=== PATIENT | female | born 1995 | race Caucasian/White ===

== ENCOUNTER 2017-01-01 17:03 | Emergency (ER) | payer OTHER ==
[~2017-01-01] VITALS: Ht 182.9 cm; Wt 77.1 kg
[2017-01-01] MEDS ORDERED: SERT100T PO (17:19)
[2017-01-01 17:30] LABS: *BILIRUBIN,URIN NEGATIVE (NEGATIVE); *BLOOD, URINE NEGATIVE (NEGATIVE); *COLOR,URINE YELLOW (YELLOW); *KETONES,URINE NEGATIVE (NEGATIVE); *PROTEIN,URINE TRACE (NEGATIVE); LEUKOCYTE ESTERASE ,URINE NEGATIVE (NEGATIVE); NITRITE, URINE NEGATIVE (NEGATIVE); UGLUCOSE NEGATIVE (NEGATIVE)
[2017-01-01 17:33] LABS: *URINE HCG, QUAL NEGATIVE (NEGATIVE)
[2017-01-01 17:39] LABS: *CLARITY,URINE SLIGHTLY HAZY (CLEAR)
[2017-01-01 17:40] LABS: BACTERIA,URINE FEW /HPF (NONE SEEN); MUCUS,URINE MODERATE /LPF (0-FEW); SQUAMOUS EPITHELIAL CELL,UR MODERATE /HPF (NONE SEEN); WBC,URINE 0-3 /HPF (0-3)
--- NOTE | 2017-01-01 18:41 | NUR ---
Patient discharged to home in stable conditon. Written and verbal after care instructions given to patient. Patient verbalizes understanding of instructions.
== END 2017-01-01 18:42 | disposition home or self-care (01) ==
LOC: ER 17:06
DX: J39.8 Other specified diseases of upper respiratory tract (principal); N39.0 Urinary tract infection, site not specified; F32.9 Major depressive disorder, single episode, unspecified; Z88.0 Allergy status to penicillin; Z88.6 Allergy status to analgesic agent
CPT/HCPCS: 84703; A4663

== ENCOUNTER 2017-03-04 16:34 | Emergency (ER) | payer OTHER ==
[~2017-03-04] VITALS: Ht 182.9 cm; Wt 77.1 kg
[~2017-03-04 16:34] MED LIST: SERT100T PO
[2017-03-04] MEDS ORDERED: ALPR1TAB2 PO (16:49)
[2017-03-04 16:58] LABS: *BILIRUBIN,URIN NEGATIVE (NEGATIVE); *BLOOD, URINE 3+ (NEGATIVE); *CLARITY,URINE CLOUDY (CLEAR); *COLOR,URINE YELLOW (YELLOW); *KETONES,URINE NEGATIVE (NEGATIVE); *PROTEIN,URINE 3+ (NEGATIVE); *UROBILINOGEN,URINE 0.2 E.U./dl (NORMAL); LEUKOCYTE ESTERASE ,URINE 3+ (NEGATIVE); NITRITE, URINE NEGATIVE (NEGATIVE); UGLUCOSE NEGATIVE (NEGATIVE)
[2017-03-04] MEDS ORDERED: HYDROCODONE/APAP 5-325MG TABLET PO ONE (17:00)
[2017-03-04] MEDS ORDERED: HYDROCODONE/APAP 5-325MG TABLET ONE (17:03)
[2017-03-04 17:08] LABS: BACTERIA,URINE FEW /HPF (NONE SEEN); RBC,URINE 20-50 /HPF (0-3); SQUAMOUS EPITHELIAL CELL,UR MODERATE /HPF (NONE SEEN); WBC,URINE 20-50 /HPF (0-3)
[2017-03-04 17:25] LABS: *URINE HCG, QUAL NEGATIVE (NEGATIVE)
--- NOTE | 2017-03-04 18:03 | NUR ---
Patient discharged to home in stable conditon. Written and verbal after care instructions given. Patient verbalizes understanding of instructions.pt walks i nsteady gait. pt not driving. says mother is taking the pt home
== END 2017-03-04 18:05 | disposition home or self-care (01) ==
LOC: ER 17:11
DX: N39.0 Urinary tract infection, site not specified (principal); F32.9 Major depressive disorder, single episode, unspecified; F41.9 Anxiety disorder, unspecified; Z88.0 Allergy status to penicillin; Z88.6 Allergy status to analgesic agent
CPT/HCPCS: 84703; A4663

== ENCOUNTER 2017-06-13 19:39 | Emergency (ER) | payer OTHER ==
[~2017-06-13] VITALS: Ht 182.9 cm; Wt 81.6 kg
[~2017-06-13 19:39] MED LIST changes: +ALPR1TAB2 PO
[2017-06-13 20:15] LABS: *BILIRUBIN,URIN NEGATIVE (NEGATIVE); *BLOOD, URINE 2+ (NEGATIVE); *CLARITY,URINE CLOUDY (CLEAR); *COLOR,URINE YELLOW (YELLOW); *KETONES,URINE NEGATIVE (NEGATIVE); *PROTEIN,URINE 2+ (NEGATIVE); *UROBILINOGEN,URINE 0.2 E.U./dl (NORMAL); LEUKOCYTE ESTERASE ,URINE 2+ (NEGATIVE); NITRITE, URINE NEGATIVE (NEGATIVE); PH,URINE 5.5 (5.0-8.0); UGLUCOSE NEGATIVE (NEGATIVE)
[2017-06-13 20:16] LABS: *URINE HCG, QUAL NEGATIVE (NEGATIVE)
[2017-06-13 20:23] LABS: BACTERIA,URINE MANY /HPF (NONE SEEN); SQUAMOUS EPITHELIAL CELL,UR MODERATE /HPF (NONE SEEN); WBC,URINE 80-100 /HPF (0-3)
[2017-06-13 20:41] LABS: BASOPHILS % (AUTO) 0.2 % (0.0-2.0); EOSINOPHILS # (AUTO) 0.2 K/uL (0.0-0.7); EOSINOPHILS % (AUTO) 1.3 % (0.0-7.0); HEMATOCRIT 40.3 % (37-47); HEMOGLOBIN 13.4 G/DL (12.0-16.0); LYMPHOCYTES # (AUTO) 2.2 K/UL (0.8-4.8); LYMPHOCYTES % (AUTO) 16.6 % (20.5-74.5); MEAN CORPUSCULAR HEMOGLOBIN 28.4 UUG (27.0-31.0); MEAN CORPUSCULAR HGB CONC 33 g/dL (32.0-37.0); MEAN CORPUSCULAR VOLUME 85.2 FL (81.0-99.0); MONOCYTES # (AUTO) 0.7 K/UL (0.1-1.30); MONOCYTES % (AUTO) 5.4 % (0-11); NEUTROPHILS # (AUTO) 9.9 K/UL (1.8-8.9); NEUTROPHILS % (AUTO) 76.5 % (31.5-64.5); PLATELET COUNT (AUTO) 475 K/UL (150-450); RED BLOOD CELL COUNT(AUTO) 4.73 MIL/UL (4.2-5.4)
[2017-06-13 20:47] LABS: BILIRUBIN,TOTAL 0.2 mg/dL (0.2-1.0); POTASSIUM 3.5 mmol/L (3.5-5.1); TOTAL PROTEIN, SERUM 7.9 g/dL (6.4-8.2)
--- NOTE | 2017-06-13 21:40 | NUR ---
IV removed. Catheter intact and site benign. Pressure and 4x4 gauze applied to site. No bleeding noted.
--- NOTE | 2017-06-13 21:50 | NUR ---
Patient discharged to home in stable conditon with mother taking patient home. Written and verbal after care instructions given. Patient verbalizes understanding of instructions.
[2017-06-13 22:19] VITALS: BP 128/77
[2017-06-14] MEDS ORDERED: PREDNISONE (11:13)
[2017-06-14] MEDS ORDERED: ERYTHROMYCIN (11:13)
[2017-06-14] MEDS ORDERED: CIPRO (11:13)
[2017-06-14] MEDS ORDERED: IBUPROFEN (11:13)
[2017-06-14] MEDS ORDERED: AZIT250T6 PO (13:04)
[2017-06-14] MEDS ORDERED: IBUP-1955 PO (13:04)
[2017-06-14] MEDS ORDERED: PRED50TA PO (13:04)
[2017-06-14] MEDS ORDERED: CIPR-262 PO (13:04)
== END 2017-06-13 22:19 | disposition home or self-care (01) ==
LOC: ER 19:40
DX: N12 Tubulo-interstitial nephritis, not specified as acute or chronic (principal); H65.93 Unspecified nonsuppurative otitis media, bilateral; Z88.0 Allergy status to penicillin; N13.70 Vesicoureteral-reflux, unspecified; Z87.440 Personal history of urinary (tract) infections
CPT/HCPCS: 36415; 83690; 84703; 85025; 87077; 87086; A4663; J7030

== ENCOUNTER 2017-06-14 11:06 | Inpatient (IN) | payer OTHER ==
[~2017-06-14] VITALS: Ht 182.9 cm; Wt 89.4 kg
--- NOTE | 2017-06-14 11:10 | NUR ---
Pt was seen in ER here yesterday for Pylonephritis, hx of bladder reflux and infections. Pt c/o 06/18 bilateral back and flank pain, Advil ineffective. Pt denies CP, SOB, dizziness, n/v, no other complaints, minor distress noted.
[2017-06-14] MEDS ORDERED: CIPRO (11:13)
[2017-06-14] MEDS ORDERED: IBUPROFEN (11:13)
[2017-06-14] MEDS ORDERED: PREDNISONE (11:13)
[2017-06-14] MEDS ORDERED: ERYTHROMYCIN (11:13)
[2017-06-14 11:53] LABS: BASOPHILS % (AUTO) 0.2 % (0.0-2.0); EOSINOPHILS % (AUTO) 0.1 % (0.0-7.0); HEMATOCRIT 40.4 % (31.2-41.9); HEMOGLOBIN 13.9 g/dL (10.9-14.3); LYMPHOCYTES # (AUTO) 0.6 K/uL (20.0-40.0); LYMPHOCYTES % (AUTO) 4.8 % (20.5-74.5); MEAN CORPUSCULAR HEMOGLOBIN 29.5 uug (24.7-32.8); MEAN CORPUSCULAR HGB CONC 35 g/dL (32.3-35.6); MEAN CORPUSCULAR VOLUME 85.7 fL (75.5-95.3); MONOCYTES # (AUTO) 0.2 K/uL (2.0-10.0); MONOCYTES % (AUTO) 1.3 % (0-11); NEUTROPHILS # (AUTO) 12.5 K/uL (1.8-8.9); NEUTROPHILS % (AUTO) 93.6 % (31.5-64.5); PLATELET COUNT (AUTO) 383 K/uL (179-408); RED BLOOD CELL COUNT(AUTO) 4.71 MIL/uL (3.63-4.92); WHITE BLOOD COUNT (AUTO) 13.4 K/uL (3.8-11.8)
[2017-06-14 12:23] LABS: CARBON DIOXIDE 27 mmol/L (21-32); CHLORIDE 107 mmol/L (98-107); CREATININE 0.8 mg/dL (0.6-1.3); GLUCOSE 88 mg/dL (74-106); POTASSIUM 4.2 mmol/L (3.5-5.1); UREA NITROGEN, BLOOD 14 mg/dL (7-18)
[2017-06-14 12:29] LABS: ALANINE AMINOTRANSFERASE 13 U/L (14-59); ALKALINE PHOSPHATASE 105 U/L (50-136); ASPARTATE AMINOTRANSFERASE 10 U/L (15-37); BILIRUBIN,DIRECT < 0.1 mg/dL (0.0-0.2); BILIRUBIN,TOTAL 0.2 mg/dL (0.2-1.0); LIPASE 255 U/L (73-393); TOTAL PROTEIN, SERUM 7.1 g/dL (6.4-8.2)
[2017-06-14] MEDS ORDERED: IBUP-1955 PO (13:04)
[2017-06-14] MEDS ORDERED: AZIT250T6 PO (13:04)
[2017-06-14] MEDS ORDERED: PRED50TA PO (13:04)
[2017-06-14] MEDS ORDERED: CIPR-262 PO (13:04)
--- NOTE | 2017-06-14 13:05 | NUR ---
Pt to CT, NAD noted.
[2017-06-14 13:07] LABS: *BILIRUBIN,URIN NEGATIVE (NEGATIVE); *BLOOD, URINE NEGATIVE (NEGATIVE); *CLARITY,URINE CLEAR (CLEAR); *COLOR,URINE YELLOW (YELLOW); *KETONES,URINE TRACE (NEGATIVE); *PROTEIN,URINE NEGATIVE (NEGATIVE); *URINE HCG, QUAL NEGATIVE (NEGATIVE); *UROBILINOGEN,URINE 0.2 E.U./dl (NORMAL); LEUKOCYTE ESTERASE ,URINE NEGATIVE (NEGATIVE); NITRITE, URINE NEGATIVE (NEGATIVE); UGLUCOSE NEGATIVE (NEGATIVE)
[2017-06-14 13:20] LABS: BACTERIA,URINE FEW /HPF (NONE SEEN); SQUAMOUS EPITHELIAL CELL,UR MODERATE /HPF (NONE SEEN)
--- NOTE | 2017-06-14 13:31 | NUR ---
Pt back from CT, states her pain is improved.
--- NOTE | 2017-06-14 14:31 | NUR ---
Pt resting in [facility], states she is pain free at this time. Dr. Burnham spoke with Dr. Leary via telephone and pt to be admitted to m/s.
--- NOTE | 2017-06-14 14:45 | NUR ---
No m/s beds available at this time, pt will be held in ER until bed available.
--- NOTE | 2017-06-14 17:24 | NUR ---
Pt resting in bed, pain free, no complaints, no distress noted. Pt appears slightly pale, VSS.
--- NOTE | 2017-06-14 19:33 | NUR ---
Pt is alert, responsive as report is received from the off going nurse that she came in c/o Bilat Flank pain with history off Pyelonephritis. Her care continue with IVF and antibiotic therapy as she is been admitted while monitor and awaits bed for admission.
--- NOTE | 2017-06-14 20:25 | NUR ---
Pt remain alert, responsive as report is given to the 2nd floor RN as she is going to room 228. Her care continue with pain medications noted effective at this hour.
--- NOTE | 2017-06-14 20:45 | NUR ---
ADMITTED PATIENT IN THE MED SURG FLOOR UNDER THE CARE OF DR. YEUNG, BELONGING LIST DONE.
[2017-06-14 22:00] VITALS: BP 124/63
--- NOTE | 2017-06-14 22:02 | NUR ---
ROCEPHIN 1GM NOT GIVEN, TOO CLOSE FROM PREVIOUS ADMINISTRATION, ROCEPHIN 1GM GIVEN AT E.R.
[2017-06-15 04:00] VITALS: BP 119/50
--- NOTE | 2017-06-15 06:56 | NUR ---
PATIENT SLEPT MOST OF THE NIGHT NO SOB NO CHEST PAIN NOTED, NO OTHER COMPLAIN OF PAIN AT THIS TIME. PATIENT REMAINS NPO ALL NIGHT, WILL ENDORSED TO CLARIFY IF PATIENT CAN EAT MEALS.
[2017-06-15 07:43] LABS: BASOPHILS % (AUTO) 0.3 % (0.0-2.0); EOSINOPHILS # (AUTO) 0.1 K/uL (0.0-0.7); EOSINOPHILS % (AUTO) 0.5 % (0.0-7.0); HEMATOCRIT 39.4 % (37-47); HEMOGLOBIN 13.5 G/DL (12.0-16.0); MEAN CORPUSCULAR HEMOGLOBIN 29.1 UUG (27.0-31.0); MEAN CORPUSCULAR HGB CONC 34 g/dL (32.0-37.0); MEAN CORPUSCULAR VOLUME 85.1 FL (81.0-99.0); MONOCYTES # (AUTO) 0.8 K/UL (0.1-1.30); MONOCYTES % (AUTO) 6.3 % (0-11); NEUTROPHILS # (AUTO) 9.1 K/UL (1.8-8.9); NEUTROPHILS % (AUTO) 75.9 % (31.5-64.5); PLATELET COUNT (AUTO) 418 K/UL (150-450); RED BLOOD CELL COUNT(AUTO) 4.63 MIL/UL (4.2-5.4)
[2017-06-15 07:54] LABS: BILIRUBIN,TOTAL 0.2 mg/dL (0.2-1.0); CREATININE 0.9 mg/dL (0.6-1.3); MAGNESIUM 1.9 mg/dL (1.8-2.4); PHOSPHOROUS 3.8 mg/dL (2.5-4.9); POTASSIUM 3.5 mmol/L (3.5-5.1); TOTAL PROTEIN, SERUM 7.2 g/dL (6.4-8.2)
--- NOTE | 2017-06-15 08:00 | NUR ---
Awake, alert, oriented x 4, comfortable at this time. Mother at bedside
--- NOTE | 2017-06-15 10:15 | NUR ---
Complaining of of left flank pain. Toradol IV given, with relief.
[2017-06-15 11:13] VITALS: BP 113/65
--- NOTE | 2017-06-15 12:00 | NUR ---
Dr. Leary seen and examined patient, discussed condition and plan of care with mother
[2017-06-15 15:17] VITALS: BP 110/54
--- NOTE | 2017-06-15 15:30 | NUR ---
IVF of NS started as ordered
--- NOTE | 2017-06-15 18:50 | NUR ---
IVF infusing, due Rocephin infusing. Pain scale of 2/10, bearable at this time, offered pain medication but refused and will call if not tolerable.
--- NOTE | 2017-06-15 19:30 | NUR ---
Pt in room alert, awake, with mother at bedside. States pain 4/10 but able to tolerate at this time. No acute distress or discomfort. Continue to monitor. Call light placed within reach.
[2017-06-15 20:00] VITALS: BP 129/71
--- NOTE | 2017-06-16 00:44 | NUR ---
Pt alert, awake, in room. Pain medication Dilaudid effective. NS running at 80cc/hr. Call light placed within reach.
--- NOTE | 2017-06-16 05:08 | NUR ---
Pt asleep in room. No pain at this time. BP110/77. Continue to monitor.
[2017-06-16 06:58] VITALS: BP 110/77
--- NOTE | 2017-06-16 07:30 | NUR ---
Received report from wet plant operator nurse, patient in bed asleep, no evidence of distress noted. Bed in low position, side rails up x2.
[2017-06-16 08:06] LABS: BASOPHILS % (AUTO) 0.5 % (0.0-2.0); EOSINOPHILS # (AUTO) 0.3 K/uL (0.0-0.7); EOSINOPHILS % (AUTO) 4.3 % (0.0-7.0); HEMOGLOBIN 12.8 G/DL (12.0-16.0); LYMPHOCYTES # (AUTO) 2.4 K/UL (0.8-4.8); LYMPHOCYTES % (AUTO) 29.8 % (20.5-74.5); MEAN CORPUSCULAR HEMOGLOBIN 29.4 UUG (27.0-31.0); MEAN CORPUSCULAR HGB CONC 35 g/dL (32.0-37.0); MONOCYTES # (AUTO) 0.6 K/UL (0.1-1.30); MONOCYTES % (AUTO) 7.1 % (0-11); NEUTROPHILS # (AUTO) 4.7 K/UL (1.8-8.9); NEUTROPHILS % (AUTO) 58.3 % (31.5-64.5); PLATELET COUNT (AUTO) 404 K/UL (150-450); RED BLOOD CELL COUNT(AUTO) 4.35 MIL/UL (4.2-5.4)
[2017-06-16 08:55] LABS: CREATININE 0.9 mg/dL (0.6-1.3); MAGNESIUM 1.7 mg/dL (1.8-2.4); POTASSIUM 3.9 mmol/L (3.5-5.1)
[2017-06-16 11:53] VITALS: BP 125/70
[2017-06-16 15:22] VITALS: BP 123/61
--- NOTE | 2017-06-16 19:35 | NUR ---
PATIENT IN BED, AWAKE, NO REPORTS OF PAIN. PATIENT HAD 2BM'S TODAY AND IS IN NO DISTRESS. BED IS IN LOW POSITION, SIDE RAILS UP X2.
[2017-06-16 20:00] VITALS: BP 125/66
--- NOTE | 2017-06-16 23:11 | NUR ---
patient is comfortable sitting in bed with family at bedside. complaint of left abdominal pain 6/10 given prn dilaudid. maintained on ivf as ordered. otherwise vss. call light within reach.
[2017-06-17 05:23] VITALS: BP 124/65
--- NOTE | 2017-06-17 07:35 | NUR ---
Received report from shift leader nurse, patient in bed asleep, no evidence of distress noted. Bed in low position, side rails up x2. call light with in reach
[2017-06-17 11:24] VITALS: BP 127/77
[2017-06-17 15:49] VITALS: BP 114/65
[2017-06-17 20:29] VITALS: BP 136/64
--- NOTE | 2017-06-18 00:32 | NUR ---
Pt in room asleep at this time. No c/o of pain. Call light within reach.
[2017-06-18 06:21] VITALS: BP 112/60
--- NOTE | 2017-06-18 07:30 | NUR ---
RECEIVED REPORT FROM MEDICATION CARE MANAGER NURSE, PATIENT IN BED ASLEEP, NO EVIDENCE OF DISTRESS NOTED, BED IN LOW POSITION, SIDE RAILS UP X2, CALL LIGHT WITHIN REACH.
[2017-06-18 11:32] VITALS: BP 136/86
[2017-06-18 15:30] VITALS: BP 106/58
--- NOTE | 2017-06-18 19:30 | NUR ---
PT RECEIVED IN BED, AWAKE. MOTHER AT BEDSIDE. A/O X4. ABLE TO MAKE NEEDS KNOW. VS STABLE. IN NO ACUTE DISTRESS. NO C/O PAIN. IV INTACT/PATENT. PT WAITING FOR DISCHARGE. SAFETY MEASURE IMPLEMENTED. CALL LIGHT WITHIN REACH.
--- NOTE | 2017-06-18 19:30 | NUR ---
GAVE REPORT TO SLASHER TENDER HELPER STAFF. PATIENT IS AWAITING TO BE DISCHARGED. DISCHARGE ORDERS WILL BE COMPLETED BY DR GAGE, PRESCRIPTION IN CHART FOR PATIENT.
[2017-06-18 20:00] VITALS: BP 115/70
--- NOTE | 2017-06-18 20:35 | NUR ---
PT IN STABLE CONDITION. READY FOR DISCHARGE. DISCHARGE FORMS PROVIDED AND SIGNED. DISCHARGE EDUCATION PROVIDED. NEW MEDICATION PRESCRIPTIONS PROVIDED. BELONGINGS LIST COMPLETED AND SIGNED. IV D/C. WHEELCHAIR TRANSPORTATION PROVIDED.
== END 2017-06-18 20:39 | disposition home or self-care (01) | DRG 463 ==
LOC: ER 11:06 → MED 20:29
PROVIDERS: ADMIT Internal Medicine; ATTEND Internal Medicine
DX: N12 Tubulo-interstitial nephritis, not specified as acute or chronic (principal); N13.70 Vesicoureteral-reflux, unspecified; B96.20 Unspecified Escherichia coli [E. coli] as the cause of diseases classified elsewhere; N26.1 Atrophy of kidney (terminal); E66.9 Obesity, unspecified; Z87.440 Personal history of urinary (tract) infections; K56.41 Fecal impaction; H65.93 Unspecified nonsuppurative otitis media, bilateral
CPT/HCPCS: 36415; 83690; 83735; 84100; 84703; 85025; A4663; J0696; J1170; J1885; J1956; J2405; J7030; J7060

== ENCOUNTER 2017-07-01 15:36 | Emergency (ER) | payer OTHER ==
[~2017-07-01] VITALS: Ht 182.9 cm; Wt 79.4 kg
[~2017-07-01 15:36] MED LIST changes: -ALPR1TAB2 PO
[2017-07-01] MEDS ORDERED: LEVOFLOXACIN 500 MG TABLET PO (15:55)
[2017-07-01] MEDS ORDERED: HYDROCODON-ACETAMINOPHN 10-325 PO (15:55)
[2017-07-01] MEDS ORDERED: XANAX 1 MG PO (15:55)
[2017-07-01] MEDS ORDERED: IV NORMAL SALINE 1000 ML BAG IV ONE (16:30)
[2017-07-01] MEDS ORDERED: PANTOPRAZOLE SODIUM 40 MG VIAL IV ONE (16:30)
[2017-07-01] MEDS ORDERED: MORPHINE SULFATE 2 MG/1 ML DISP.SYRIN IV ONE (16:30)
[2017-07-01] MEDS ORDERED: ONDANSETRON 4 MG/2 ML VIAL IV ONE (16:30)
[2017-07-01 16:58] LABS: *BILIRUBIN,URIN NEGATIVE (NEGATIVE); *BLOOD, URINE NEGATIVE (NEGATIVE); *CLARITY,URINE CLEAR (CLEAR); *COLOR,URINE YELLOW (YELLOW); *KETONES,URINE TRACE (NEGATIVE); *PROTEIN,URINE 1+ (NEGATIVE); *UROBILINOGEN,URINE 0.2 E.U./dl (NORMAL); LEUKOCYTE ESTERASE ,URINE NEGATIVE (NEGATIVE); NITRITE, URINE NEGATIVE (NEGATIVE); UGLUCOSE NEGATIVE (NEGATIVE)
[2017-07-01 17:04] LABS: CREATININE 0.9 mg/dL (0.6-1.3); POTASSIUM 4.2 mmol/L (3.5-5.1); RBC,URINE 0-3 /HPF (0-3)
[2017-07-01 17:05] LABS: BACTERIA,URINE FEW /HPF (NONE SEEN); SQUAMOUS EPITHELIAL CELL,UR MODERATE /HPF (NONE SEEN); WBC,URINE 0-3 /HPF (0-3)
[2017-07-01 17:10] LABS: BILIRUBIN,DIRECT 0.1 mg/dL (0.0-0.2); BILIRUBIN,TOTAL 0.5 mg/dL (0.2-1.0)
[2017-07-01] MEDS ORDERED: PANTOPRAZOLE SODIUM 40 MG VIAL ONE (17:14)
[2017-07-01] MEDS ORDERED: ONDANSETRON 4 MG/2 ML VIAL ONE (17:14)
[2017-07-01 17:15] LABS: BASOPHILS % (AUTO) 0.1 % (0.0-2.0); EOSINOPHILS # (AUTO) 0.1 K/uL (0.0-0.7); EOSINOPHILS % (AUTO) 0.8 % (0.0-7.0); HEMATOCRIT 43.4 % (37-47); HEMOGLOBIN 14.1 G/DL (12.0-16.0); LYMPHOCYTES # (AUTO) 0.6 K/UL (0.8-4.8); LYMPHOCYTES % (AUTO) 5.3 % (20.5-74.5); MEAN CORPUSCULAR HEMOGLOBIN 27.6 UUG (27.0-31.0); MEAN CORPUSCULAR HGB CONC 33 g/dL (32.0-37.0); MEAN CORPUSCULAR VOLUME 85.2 FL (81.0-99.0); MONOCYTES # (AUTO) 0.4 K/UL (0.1-1.30); MONOCYTES % (AUTO) 3.4 % (0-11); NEUTROPHILS # (AUTO) 10.8 K/UL (1.8-8.9); NEUTROPHILS % (AUTO) 90.4 % (31.5-64.5); PLATELET COUNT (AUTO) 431 K/UL (150-450); WHITE BLOOD COUNT (AUTO) 11.9 K/UL (4.0-11.2)
[2017-07-01] MEDS ORDERED: MORPHINE SULFATE 2 MG/1 ML DISP.SYRIN ONE (17:15)
--- NOTE | 2017-07-01 18:40 | NUR ---
Patient discharged to home in stable conditon. Written and verbal after care instructions given. Patient verbalizes understanding of instructions.pt wakls in steady gait,pt with family members, pt not driving
--- NOTE | 2017-07-01 18:41 | NUR ---
pt says feels better, pt deneis any pain, nausea or dizziness at this time.
[2017-07-01 18:42] VITALS: BP 119/81
== END 2017-07-01 18:43 | disposition home or self-care (01) ==
LOC: ER 15:38
DX: R10.9 Unspecified abdominal pain (principal); Z88.0 Allergy status to penicillin
CPT/HCPCS: 36415; 76770; 80048; 80076; 81001; 83605; 83690; 84703; 85025; 87040 ×2; 96361; 96374; 96375; 99285; A4663; C9113; J2270; J2405; J7030

== ENCOUNTER 2018-10-25 17:54 | Emergency (ER) | payer MEDICAID, OTHER ==
[~2018-10-25] VITALS: Ht 182.9 cm; Wt 87.5 kg
[~2018-10-25 17:54] MED LIST changes: +HYDROCODON-ACETAMINOPHN 10-325 PO; +LEVOFLOXACIN 500 MG TABLET PO; +XANAX 1 MG PO
--- NOTE | 2018-10-25 18:15 | NUR ---
URINE SENT TO LAB....
[2018-10-25 18:17] LABS: *BILIRUBIN,URIN NEGATIVE (NEGATIVE); *BLOOD, URINE 2+ (NEGATIVE); *COLOR,URINE YELLOW (YELLOW); *KETONES,URINE NEGATIVE (NEGATIVE); *UROBILINOGEN,URINE 0.2 E.U./dl (NORMAL); LEUKOCYTE ESTERASE ,URINE TRACE (NEGATIVE); NITRITE, URINE NEGATIVE (NEGATIVE); UGLUCOSE NEGATIVE (NEGATIVE)
[2018-10-25 18:22] LABS: *CLARITY,URINE SLIGHTLY CLOUDY (CLEAR)
[2018-10-25 18:23] LABS: *URINE HCG, QUAL NEGATIVE (NEGATIVE)
[2018-10-25 18:27] LABS: BACTERIA,URINE FEW /HPF (NONE SEEN); SQUAMOUS EPITHELIAL CELL,UR FEW /HPF (NONE SEEN); WBC,URINE 20-50 /HPF (0-3)
[2018-10-25] MEDS ORDERED: LEVOFLOXACIN 500 MG TABLET ONE (18:44)
[2018-10-25] MEDS ORDERED: KETOROLAC TROMETHAMINE 30 MG INJ ONE (18:44)
--- NOTE | 2018-10-25 18:44 | NUR ---
Patient discharged to home in stable conditon. Written and verbal after care instructions given. Patient verbalizes understanding of instructions.
[2018-10-25] MEDS ORDERED: LEVOFLOXACIN 500 MG TABLET PO ONE (18:45)
[2018-10-25] MEDS ORDERED: KETOROLAC TROMETHAMINE 30 MG INJ IM ONE (18:45)
== END 2018-10-25 18:45 | disposition home or self-care (01) ==
LOC: ER 17:57
DX: N12 Tubulo-interstitial nephritis, not specified as acute or chronic (principal); Z88.0 Allergy status to penicillin; Z88.5 Allergy status to narcotic agent; Z79.2 Long term (current) use of antibiotics; Z79.899 Other long term (current) drug therapy
CPT/HCPCS: 81001; 84703; 87086; 96372; 99283; J1885; 87077; A4663

== ENCOUNTER 2020-08-26 13:11 | Emergency (ER) | payer MEDICAID ==
[~2020-08-26] VITALS: Ht 182.9 cm; Wt 81.6 kg
[2020-08-26] MEDS ORDERED: HYDROMORPHONE 1 MG/1 ML DISP.SYRIN IV ONE ×3 (13:45→18:00)
[2020-08-26] MEDS ORDERED: PANTOPRAZOLE SODIUM 40 MG VIAL IV ONE (13:45)
[2020-08-26] MEDS ORDERED: PANTOPRAZOLE SODIUM 40 MG VIAL ONE (13:45)
[2020-08-26] MEDS ORDERED: HYDROMORPHONE 1 MG/1 ML DISP.SYRIN ONE ×2 (13:45→15:53)
[2020-08-26] MEDS ORDERED: ONDANSETRON 4 MG/2 ML VIAL ONE ×3 (13:45→17:59)
[2020-08-26] MEDS ORDERED: IV NORMAL SALINE 1000 ML BAG IV ONE (13:45)
[2020-08-26] MEDS ORDERED: ONDANSETRON 4 MG/2 ML VIAL IV ONE ×3 (13:45→18:00)
[2020-08-26 14:16] LABS: BASOPHILS % (AUTO) 0.5 % (0.0-2.0); EOSINOPHILS # (AUTO) 0.3 K/uL (0.0-0.7); HEMATOCRIT 42.1 % (31.2-41.9); HEMOGLOBIN 14.1 g/dL (10.9-14.3); LYMPHOCYTES # (AUTO) 1.6 K/uL (20.0-40.0); LYMPHOCYTES % (AUTO) 18.7 % (20.5-51.5); MEAN CORPUSCULAR HEMOGLOBIN 30.2 uug (24.7-32.8); MEAN CORPUSCULAR HGB CONC 34 g/dL (32.3-35.6); MONOCYTES # (AUTO) 0.6 K/uL (2.0-10.0); MONOCYTES % (AUTO) 6.9 % (0.0-11.0); NEUTROPHILS # (AUTO) 6.2 K/uL (1.8-8.9); NEUTROPHILS % (AUTO) 69.9 % (38.5-71.5); PLATELET COUNT (AUTO) 386 K/uL (179-408); RED BLOOD CELL COUNT(AUTO) 4.68 MIL/uL (3.63-4.92); WHITE BLOOD COUNT (AUTO) 8.8 K/uL (3.8-11.8)
[2020-08-26 14:21] LABS: ALANINE AMINOTRANSFERASE 24 U/L (14-59); ALKALINE PHOSPHATASE 92 U/L (50-136); ASPARTATE AMINOTRANSFERASE 13 U/L (15-37); BILIRUBIN,DIRECT 0.1 mg/dL (0.0-0.2); BILIRUBIN,TOTAL 0.3 mg/dL (0.2-1.0); CARBON DIOXIDE 28 mmol/L (21-32); CHLORIDE 107 mmol/L (98-107); CREATININE 0.9 mg/dL (0.6-1.3); GLUCOSE 97 mg/dL (74-106); LIPASE 80 U/L (73-393); TOTAL PROTEIN, SERUM 7.3 g/dL (6.4-8.2); UREA NITROGEN, BLOOD 11 mg/dL (7-18)
[2020-08-26 15:11] LABS: *BILIRUBIN,URIN 1+ (NEGATIVE); *BLOOD, URINE 1+ (NEGATIVE); *CLARITY,URINE CLEAR (CLEAR); *COLOR,URINE YELLOW (YELLOW); *KETONES,URINE NEGATIVE (NEGATIVE); *UROBILINOGEN,URINE 0.2 E.U./dl (NORMAL); LEUKOCYTE ESTERASE ,URINE NEGATIVE (NEGATIVE); NITRITE, URINE NEGATIVE (NEGATIVE); UGLUCOSE NEGATIVE (NEGATIVE)
[2020-08-26] MEDS ORDERED: methylPREDNISolone SOD SUCC 125 MG/2 ML VIAL IV ONE (16:15)
[2020-08-26] MEDS ORDERED: methylPREDNISolone SOD SUCC 125 MG/2 ML VIAL ONE (16:16)
--- NOTE | 2020-08-26 16:19 | NUR ---
Patient ambulated to bathroom with brisk steady gait, pending assigned med-surgical bed & nurse@this time
--- NOTE | 2020-08-26 17:24 | NUR ---
Patient will be discharge to home instead of admitted to the hospital per Dr Burnham.
--- NOTE | 2020-08-26 17:48 | NUR ---
Patient is asking for COVID test, more pain medicines and pain prescription. Dr Burnham notified.
[2020-08-26] MEDS ORDERED: HYDROMORPHONE 2 MG/1 ML DISP.SYRIN ONE (17:59)
--- NOTE | 2020-08-26 18:15 | NUR ---
IV removed. Catheter intact and site benign. Pressure and 4x4 gauze applied to site. No bleeding noted. Patient discharged to home in stable condition with brisk steady gait. Written and verbal after care instructions given. Patient verbalizes understanding & compliance of instructions. Stressed follow up with her primary doctor & GI doctor or return to ER for worsening s/s.
[2020-08-26 19:49] LABS: BACTERIA,URINE FEW /HPF (NONE SEEN); RBC,URINE 0-3 /HPF (0-3); SQUAMOUS EPITHELIAL CELL,UR FEW /HPF (NONE SEEN); WBC,URINE NONE SEEN /HPF (0-3)
[2020-08-26 19:50] LABS: URINE AMORPHOUS URATE MODERATE /HPF
== END 2020-08-26 18:16 | disposition home or self-care (01) ==
LOC: ER 13:11
DX: K52.9 Noninfective gastroenteritis and colitis, unspecified (principal); F32.9 Major depressive disorder, single episode, unspecified; F41.0 Panic disorder [episodic paroxysmal anxiety]; N26.1 Atrophy of kidney (terminal); Z20.828 Contact with and (suspected) exposure to other viral communicable diseases
CPT/HCPCS: 36415; 71045; 74176; 80048; 80076; 81001; 83690; 84702; 85025; 87426; 96361; 96374; 96375; 96376; 99285; C9113; J1170 ×3; J2405 ×3; J2930; A4663; J7030

== ENCOUNTER 2021-05-28 12:55 | Emergency (ER) | payer MEDICAID ==
[~2021-05-28] VITALS: Ht 182.9 cm; Wt 83.9 kg
[2021-05-28 13:52] LABS: *BILIRUBIN,URIN NEGATIVE (NEGATIVE); *BLOOD, URINE NEGATIVE (NEGATIVE); *CLARITY,URINE CLEAR (CLEAR); *COLOR,URINE YELLOW (YELLOW); *KETONES,URINE NEGATIVE (NEGATIVE); *UROBILINOGEN,URINE 0.2 E.U./dl (NORMAL); LEUKOCYTE ESTERASE ,URINE NEGATIVE (NEGATIVE); NITRITE, URINE NEGATIVE (NEGATIVE); UGLUCOSE NEGATIVE (NEGATIVE)
[2021-05-28 14:13] LABS: *URINE HCG, QUAL NEGATIVE (NEGATIVE)
[2021-05-28 14:23] LABS: SQUAMOUS EPITHELIAL CELL,UR FEW /HPF (NONE SEEN)
[2021-05-28 14:24] LABS: BACTERIA,URINE NONE SEEN /HPF (NONE SEEN); MUCUS,URINE FEW /LPF (0-FEW); RBC,URINE NONE SEEN /HPF (0-3); WBC,URINE 0-3 /HPF (0-3)
[2021-05-28] MEDS ORDERED: AZITHROMYCIN 250 MG TABLET PO ONE (14:45)
[2021-05-28] MEDS ORDERED: CEFTRIAXONE 500 MG VIAL IM ONE (14:45)
[2021-05-28] MEDS ORDERED: CEFTRIAXONE 500 MG VIAL ONE (15:08)
[2021-05-28] MEDS ORDERED: LIDOCAINE HCL 1% 20 ML VIAL ONE (15:08)
[2021-05-28] MEDS ORDERED: AZITHROMYCIN 250 MG TABLET ONE (15:08)
[2021-05-28] MEDS ORDERED: D-ME473S63 PO (15:28)
--- NOTE | 2021-05-28 16:20 | NUR ---
Patient discharged to home in stable condition. Written and verbal after care instructions given. Patient verbalizes understanding of instructions. Stressed follow up or return to ER for worsening s/s.PT WALKS IN STEADY GAIT. NO SIGN OF DISTRESS.
[2021-05-28 16:30] VITALS: BP 141/55
[2021-06-01 23:10] LABS: *GC NAA Negative; *TRIC.VAG. NAA Negative
== END 2021-05-28 16:20 | disposition home or self-care (01) ==
LOC: ER 12:57
DX: N34.2 Other urethritis (principal); B34.9 Viral infection, unspecified; R05 Cough; Z20.822 Contact with and (suspected) exposure to COVID-19; Z88.5 Allergy status to narcotic agent; Z88.0 Allergy status to penicillin; N26.1 Atrophy of kidney (terminal); F32.9 Major depressive disorder, single episode, unspecified; F41.0 Panic disorder [episodic paroxysmal anxiety]; Z79.899 Other long term (current) drug therapy
CPT/HCPCS: 81001; 84703; 87426; 87491; 96372; 99283; J0696; J3490; U0003; A4663; Q0144

== ENCOUNTER 2022-04-15 17:15 | Emergency (ER) | payer MEDICAID ==
[~2022-04-15] VITALS: Ht 180.3 cm; Wt 90.7 kg
[~2022-04-15 17:15] MED LIST changes: +D-ME473S63 PO
[2022-04-15] MEDS ORDERED: ONDANSETRON 4 MG/2 ML VIAL IV ONE (18:15)
[2022-04-15] MEDS ORDERED: IV NORMAL SALINE 1000 ML BAG IV ONE (18:15)
[2022-04-15] MEDS ORDERED: ONDANSETRON 4 MG/2 ML VIAL ONE (18:16)
[2022-04-15 18:49] LABS: HEMATOCRIT 45.2 % (31.2-41.9); MEAN CORPUSCULAR VOLUME 90.9 fL (75.5-95.3); PLATELET COUNT (AUTO) 356 K/uL (179-408)
[2022-04-15 18:52] LABS: CARBON DIOXIDE 30 mmol/L (21-32); CHLORIDE 106 mmol/L (98-107); GLUCOSE 78 mg/dL (74-106); POTASSIUM 3.7 mmol/L (3.5-5.1); UREA NITROGEN, BLOOD 11 mg/dL (7-18)
[2022-04-15 18:57] LABS: ALANINE AMINOTRANSFERASE 27 U/L (14-59); ALKALINE PHOSPHATASE 107 U/L (50-136); ASPARTATE AMINOTRANSFERASE 16 U/L (15-37); BILIRUBIN,DIRECT 0.1 mg/dL (0.0-0.2); BILIRUBIN,TOTAL 0.4 mg/dL (0.2-1.0); LIPASE 86 U/L (73-393); TOTAL PROTEIN, SERUM 8.1 g/dL (6.4-8.2)
[2022-04-15] MEDS ORDERED: MORPHINE SULFATE 4 MG/1 ML DISP.SYRIN ONE (18:59)
[2022-04-15] MEDS ORDERED: MORPHINE SULFATE 4 MG/1 ML DISP.SYRIN IV ONE (19:00)
[2022-04-15 19:05] LABS: *BILIRUBIN,URIN NEGATIVE (NEGATIVE); *BLOOD, URINE NEGATIVE (NEGATIVE); *CLARITY,URINE CLEAR (CLEAR); *COLOR,URINE YELLOW (YELLOW); *KETONES,URINE NEGATIVE (NEGATIVE); *UROBILINOGEN,URINE 0.2 E.U./dl (NORMAL); LEUKOCYTE ESTERASE ,URINE NEGATIVE (NEGATIVE); NITRITE, URINE NEGATIVE (NEGATIVE); UGLUCOSE NEGATIVE (NEGATIVE)
--- NOTE | 2022-04-15 19:05 | NUR ---
Morphine given as ordered. Pain scale 9/10. Will endorse to the next shift.
[2022-04-15] MEDS ORDERED: HYDROMORPHONE 1 MG/1 ML DISP.SYRIN IV ONE ×2 (20:00→21:15)
[2022-04-15] MEDS ORDERED: IV NS 1000 ML 1,000 ML IV ONE (20:00)
[2022-04-15] MEDS ORDERED: HYDROMORPHONE 1 MG/1 ML DISP.SYRIN ONE ×2 (20:30→21:26)
[2022-04-15] MEDS ORDERED: NALO4SPR BNOSTRILS (21:02)
[2022-04-15] MEDS ORDERED: HYDR-3974 PO (21:02)
[2022-04-15] MEDS ORDERED: PRED20TA PO (21:02)
[2022-04-15] MEDS ORDERED: predniSONE 20 MG TABLET PO ONE (21:15)
[2022-04-15] MEDS ORDERED: predniSONE 20 MG TABLET ONE (21:26)
--- NOTE | 2022-04-15 21:40 | NUR ---
Patient discharged to home in stable condition. Written and verbal after care instructions given. Patient verbalizes understanding of instructions. Stressed follow up or return to ER for worsening s/s. Patient walked weith a steady gait. VS stable. No signs of acute distress. Instructed not to drive. Provided copy of labs. All belongings taken. IV site DC.
[2022-04-15 21:43] VITALS: BP 125/88
== END 2022-04-15 21:44 | disposition home or self-care (01) ==
LOC: ER 17:15
DX: K50.90 Crohn's disease, unspecified, without complications (principal); N13.70 Vesicoureteral-reflux, unspecified; Q62.39 Other obstructive defects of renal pelvis and ureter; F17.200 Nicotine dependence, unspecified, uncomplicated; N26.1 Atrophy of kidney (terminal); Z88.6 Allergy status to analgesic agent; Z88.0 Allergy status to penicillin; Z87.440 Personal history of urinary (tract) infections
CPT/HCPCS: 99285; 96374; 96361; 96375; 80076; 80048; 81003; 83690; 85025; 84702; 36415; 96376; J7512; J2405; J1170 ×2; J2270; J7040

== ENCOUNTER 2022-08-20 11:35 | Emergency (ER) | payer MEDICAID, OTHER ==
[~2022-08-20] VITALS: Ht 180.3 cm; Wt 94.3 kg
[~2022-08-20 11:35] MED LIST changes: +HYDR-3974 PO; +NALO4SPR BNOSTRILS; +PRED20TA PO
[2022-08-20 13:03] LABS: HEMATOCRIT 40.5 % (31.2-41.9); MEAN CORPUSCULAR HEMOGLOBIN 30.6 uug (24.7-32.8); MEAN CORPUSCULAR VOLUME 88.3 fL (75.5-95.3); PLATELET COUNT (AUTO) 304 K/uL (179-408)
[2022-08-20 13:12] LABS: *BILIRUBIN,URIN NEGATIVE (NEGATIVE); *CLARITY,URINE CLOUDY (CLEAR); *COLOR,URINE YELLOW (YELLOW); *KETONES,URINE NEGATIVE (NEGATIVE); *UROBILINOGEN,URINE 0.2 E.U./dl (NORMAL); LEUKOCYTE ESTERASE ,URINE 3+ (NEGATIVE); NITRITE, URINE NEGATIVE (NEGATIVE); UGLUCOSE NEGATIVE (NEGATIVE)
[2022-08-20 13:13] LABS: CARBON DIOXIDE 31 mmol/L (21-32); CHLORIDE 105 mmol/L (98-107); GLUCOSE 87 mg/dL (74-106); POTASSIUM 4.2 mmol/L (3.5-5.1); UREA NITROGEN, BLOOD 13 mg/dL (7-18)
[2022-08-20 13:14] LABS: *BLOOD, URINE TRACE (NEGATIVE); *URINE HCG, QUAL NEGATIVE (NEGATIVE)
[2022-08-20 13:19] LABS: ALANINE AMINOTRANSFERASE 16 U/L (14-59); ALKALINE PHOSPHATASE 93 U/L (50-136); ASPARTATE AMINOTRANSFERASE 9 U/L (15-37); BILIRUBIN,DIRECT < 0.1 mg/dL (0.0-0.2); BILIRUBIN,TOTAL 0.2 mg/dL (0.2-1.0); LIPASE 102 U/L (73-393); TOTAL PROTEIN, SERUM 7.2 g/dL (6.4-8.2)
[2022-08-20 13:47] LABS: RBC,URINE 0-3 /HPF (0-3); WBC,URINE 20-50 /HPF (0-3)
[2022-08-20 13:48] LABS: BACTERIA,URINE FEW /HPF (NONE SEEN); SQUAMOUS EPITHELIAL CELL,UR MODERATE /HPF (NONE SEEN)
--- NOTE | 2022-08-20 13:52 | NUR ---
Pt back from Ct scan, resting in bed.
[2022-08-20] MEDS ORDERED: KETOROLAC TROMETHAMINE 15 MG INJ ONE (13:54)
[2022-08-20] MEDS ORDERED: KETOROLAC TROMETHAMINE 15 MG INJ IM ONE (14:00)
[2022-08-20] MEDS ORDERED: KETOROLAC TROMETHAMINE 15 MG INJ IVP ONE (14:00)
[2022-08-20] MEDS ORDERED: SULFAMETH/TRIMETH 800/160 MG TABLET ONE (15:27)
[2022-08-20] MEDS ORDERED: SULFAMETH/TRIMETH 800/160 MG TABLET PO ONE (15:30)
[2022-08-20] MEDS ORDERED: SULF1TAB48 PO (18:28)
[2022-08-20] MEDS ORDERED: VALA10002 PO (18:28)
[2022-08-20 18:48] VITALS: BP 133/69
--- NOTE | 2022-08-20 18:48 | NUR ---
Patient discharged to home in stable condition. Written and verbal after care instructions given. Patient verbalizes understanding of instructions. Stressed follow up or return to ER for worsening s/s.
== END 2022-08-20 18:49 | disposition home or self-care (01) ==
LOC: ER 11:35
DX: N30.00 Acute cystitis without hematuria (principal); B00.9 Herpesviral infection, unspecified; R10.2 Pelvic and perineal pain; Z88.6 Allergy status to analgesic agent; Z88.0 Allergy status to penicillin; F17.200 Nicotine dependence, unspecified, uncomplicated; N26.1 Atrophy of kidney (terminal); K50.90 Crohn's disease, unspecified, without complications; R03.0 Elevated blood-pressure reading, without diagnosis of hypertension
CPT/HCPCS: 99284; 74176; 80076; 80048; 81001; 84703; 83690; 85025; 36415; 96372; 87040; J1885; A4663

== ENCOUNTER 2024-01-23 18:57 | Emergency (ER) | payer MEDICAID ==
[~2024-01-23] VITALS: Ht 177.8 cm; Wt 88.5 kg
[~2024-01-23 18:57] MED LIST changes: +CEPH500T PO; +SULF1TAB48 PO; +VALA10002 PO
[2024-01-23 18:58] VITALS: O2SAT 98
[2024-01-23] MEDS ORDERED: SODIUM BICARBONATE 4.2 % (NEUT) 5 ML VIAL ONE (19:33)
[2024-01-23] MEDS ORDERED: TDAP DIPH,PERTUSS,TET VAC/PF 0.5 ML DISP.SYRIN IM ONE (19:34)
[2024-01-23] MEDS ORDERED: LIDOCAINE 1%-EPI 1:100,000 20 ML VIAL ONE (19:36)
[2024-01-23] MEDS: LIDOCAINE 1%-EPI 1:100,000 20 ML VIAL IJ ONE (19:37)
[2024-01-23] MEDS: SODIUM BICARBONATE 4.2 % (NEUT) 5 ML VIAL TP ONE (19:37)
[2024-01-23] MEDS: TDAP DIPH,PERTUSS,TET VAC/PF 0.5 ML DISP.SYRIN IM ONE (19:38)
[2024-01-24] MEDS ORDERED: OXYC-133 PO (04:20)
[2024-01-24] MEDS ORDERED: OXYC-128 PO (04:31)
== END 2024-01-23 20:30 | disposition home or self-care (01) ==
LOC: ER 18:58
DX: S61.011A Laceration without foreign body of right thumb without damage to nail, initial encounter (principal); F32.A Depression, unspecified; F17.210 Nicotine dependence, cigarettes, uncomplicated; Z79.899 Other long term (current) drug therapy; W26.8XXA Contact with other sharp object(s), not elsewhere classified, initial encounter; Y93.89 Activity, other specified; Y92.89 Other specified places as the place of occurrence of the external cause; Y99.8 Other external cause status
CPT/HCPCS: 99283; 99406; 12001; 90715; 90471; J3490 ×2; A4606; A4663

== ENCOUNTER 2024-02-22 12:19 | Emergency (ER) | payer MEDICAID ==
[~2024-02-22] VITALS: Ht 180.3 cm; Wt 81.6 kg
[~2024-02-22 12:19] MED LIST changes: +OXYC-128 PO
[2024-02-22 12:38] VITALS: O2SAT 98
[2024-02-22] MEDS: CLINDAMYCIN HCL 150 MG CAPSULE PO ONE (14:27)
[2024-02-22] MEDS ORDERED: CLIN300C3 PO (14:27)
[2024-02-22] MEDS ORDERED: CLINDAMYCIN HCL 300 MG CAPSULE ONE (14:27)
== END 2024-02-22 14:44 | disposition home or self-care (01) ==
LOC: ER 12:22
DX: S61.012A Laceration without foreign body of left thumb without damage to nail, initial encounter (principal); F32.A Depression, unspecified; F17.200 Nicotine dependence, unspecified, uncomplicated; Z79.899 Other long term (current) drug therapy; Z60.2 Problems related to living alone; X58.XXXA Exposure to other specified factors, initial encounter; Y93.89 Activity, other specified; Y92.89 Other specified places as the place of occurrence of the external cause; Y99.8 Other external cause status
CPT/HCPCS: A4606; A4663

== ENCOUNTER 2024-08-16 13:39 | Emergency (ER) | payer MEDICAID ==
[~2024-08-16] VITALS: Ht 182.9 cm; Wt 91.2 kg
[~2024-08-16 13:39] MED LIST changes: +CLIN300C3 PO
[2024-08-16 16:17] LABS: *BILIRUBIN,URIN NEGATIVE (NEGATIVE); *BLOOD, URINE NEGATIVE (NEGATIVE); *CLARITY,URINE CLEAR (CLEAR); *COLOR,URINE YELLOW (YELLOW); *KETONES,URINE NEGATIVE (NEGATIVE); *PROTEIN,URINE 3+ (NEGATIVE); *UROBILINOGEN,URINE 0.2 E.U./dl (NORMAL); LEUKOCYTE ESTERASE ,URINE NEGATIVE (NEGATIVE); NITRITE, URINE NEGATIVE (NEGATIVE); PH,URINE 5.5 (5.0-8.0); UGLUCOSE NEGATIVE (NEGATIVE)
[2024-08-16 16:48] LABS: *URINE HCG, QUAL POSITIVE (NEGATIVE)
[2024-08-16 17:15] LABS: BACTERIA,URINE FEW /HPF (NONE SEEN); RBC,URINE NONE SEEN /HPF (0-3); SQUAMOUS EPITHELIAL CELL,UR MODERATE /HPF (NONE SEEN); WBC,URINE 0-3 /HPF (0-3)
[2024-08-16] MEDS ORDERED: HYDROCODONE/APAP 5-325MG TABLET ONE (17:22)
[2024-08-16] MEDS: HYDROCODONE/APAP 5-325MG TABLET PO ONE (17:24)
[2024-08-16] MEDS ORDERED: HYDR-3972 PO (18:48)
[2024-08-16 19:09] VITALS: BP 138/73; O2SAT 100
== END 2024-08-16 19:10 | disposition home or self-care (01) ==
LOC: ER 13:39
DX: S13.4XXA Sprain of ligaments of cervical spine, initial encounter (principal); S20.219A Contusion of unspecified front wall of thorax, initial encounter; S30.1XXA Contusion of abdominal wall, initial encounter; F32.A Depression, unspecified; F17.200 Nicotine dependence, unspecified, uncomplicated; F41.9 Anxiety disorder, unspecified; R10.2 Pelvic and perineal pain; Z79.52 Long term (current) use of systemic steroids; Z79.624 Long term (current) use of inhibitors of nucleotide synthesis; Z79.899 Other long term (current) drug therapy; Z88.7 Allergy status to serum and vaccine; V89.2XXA Person injured in unspecified motor-vehicle accident, traffic, initial encounter; Y93.89 Activity, other specified; Y92.89 Other specified places as the place of occurrence of the external cause; Y99.8 Other external cause status
CPT/HCPCS: 71045; 76856; 84703; A4606; A4663

== ENCOUNTER 2024-09-18 15:45 | Emergency (ER) | payer MEDICAID ==
[~2024-09-18 15:45] MED LIST changes: +HYDR-3972 PO
== END 2024-09-18 16:10 | disposition left against medical advice (07) ==
LOC: ER 15:45
DX: R10.9 Unspecified abdominal pain (principal); N93.9 Abnormal uterine and vaginal bleeding, unspecified; Z53.21 Procedure and treatment not carried out due to patient leaving prior to being seen by health care provider